=== PATIENT | male | born 1990 | race Two or more races ===

== ENCOUNTER → 2024-05-11 | Outpatient (CLI) | payer BC, SELFPAY ==
[2024-05-11 16:39] LABS: Basophils % (Auto) 1 % (0-2.5); Eosinophils # (Auto) 0.3 Thou/mm3 (0.0-0.5); Eosinophils % (Auto) 4 % (0-10); Hematocrit 44.1 % (41.0-53.0); Immature Granulocytes % (Auto) 0 % (0-0); Immature Granulocytes Auto 0.03 Thou/mm3 (0.00-0.00); Lymphocytes % (Auto) 24 % (10-50); Mean Corpuscular HGB Conc 31.7 g/dl (31.0-37.0); Mean Corpuscular Hemoglobin 25.9 pg (25.0-35.0); Mean Corpuscular Volume 82 fL (80-100); Monocytes # (Auto) 1.1 Thou/mm3 (0.0-0.8); Monocytes % (Auto) 13 % (0-12); Neutrophils # (Auto) 4.8 Thou/mm3 (1.8-7.7); Neutrophils % (Auto) 58 % (37-80); Nucleated Red Blood Cell % 0 /100 WBC (0); Platelet Count 305 Thou/mm3 (140-440); RDW Standard Deviation 42.6 fL (35.1-43.9); White Blood Count 8.2 Thou/mm3 (3.8-10.6)
[2024-05-11 17:10] LABS: Alanine Aminotransferase 37 U/L (10-49); Albumin, Serum 4.9 gm/dL (3.5-5.0); Albumin/Globulin Ratio 2.1 (1.2-2.2); Alkaline Phosphatase 60 U/L (46-116); Anion Gap 6 (7-16); Aspartate Amino Transferase 30 U/L (0-34); BUN/Creatinine Ratio 17 Ratio (12-20); Bilirubin,Total 0.4 mg/dL (0.3-1.2); Blood Urea Nitrogen 15 mg/dL (9-23); Calcium 9.9 mg/dL (8.3-10.6); Calcium (Corrected) 9.9 mg/dL (8.5-10.1); Carbon Dioxide 30.2 mMol/L (20.0-31.0); Chloride 102 mMol/L (98-107); Creatinine (Component) 0.9 mg/dL (0.6-1.3); Globulin 2.3 gm/dL (2.3-3.5); Glucose 83 mg/dL (74-106); Osmolality,Calculated 275 (275-295); Sodium 138 mMol/L (136-145); Total Protein 7.2 gm/dL (5.7-8.2); eGFR > 60 See Note
== END | disposition home or self-care (01) ==
PROVIDERS: PCP Family Medicine; Referring Provider Specialist; Visit Provider Specialist
DX: K51.911 Ulcerative colitis, unspecified with rectal bleeding (principal); R10.10 Upper abdominal pain, unspecified
CPT/HCPCS: 36415; 80053; 85025

== ENCOUNTER → 2024-08-08 | Outpatient (CLI) | payer BC, SELFPAY ==
[2024-08-08 11:20] LABS: Quantiferon-TB* See Sep Rpt
== END | disposition home or self-care (01) ==
LOC: COPL 11:05
PROVIDERS: PCP Family Medicine; Referring Provider Specialist; Visit Provider Specialist
DX: Z01.818 Encounter for other preprocedural examination (principal)
CPT/HCPCS: 86480

== ENCOUNTER 2024-08-25 14:25 | Inpatient (IN) | payer BC, SELFPAY ==
[2024-08-25 14:27] VITALS: BMI 30.5
[2024-08-25 14:48] VITALS: BP 153/92; PULSE 83; RESP 18; TEMP 37.1; O2SAT 97
--- NOTE | 2024-08-25 14:59 | XR_ITS ---
Examination: CT abdomen with intravenous contrast CT pelvis with intravenous contrast 2-D coronal reconstructions 2-D sagittal reconstructions Date and time of exam:August 25, 2024 1645 hrs. Indications: Rectal bleeding beginning 3 months ago. CTDI: vol (mGy) 9.15 DLP: (mGycm) 568 Technique: Multiple axial sections of the abdomen and pelvis have been obtained. 64 slice high-resolution scanner used. 3 mm axial sections have been obtained, post intravenous injection 60 cc [id number] 2-D sagittal, coronal reconstructions obtained. Low dose protocols were performed. One or more of the following dose reduction techniques were used; automated exposure control, adjustment of the mA and/or KV according to patient size, use of iterative reconstruction technique. Findings: No focal liver or splenic lesion Contracted gallbladder No pancreatic or adrenal mass No renal or ureteral calculi, no hydronephrosis Normal appendix The entire colon shows wall thickening and hyperemia Prominent rectal wall thickening No prostatomegaly Impression: Significant diffuse colitis pattern, differential would include ulcerative colitis, Crohn's disease Significant rectal wall thickening, proctitis included in the differential
--- NOTE | 2024-08-25 15:00 | EDRME_ITS ---
Rapid Medical Screening Exam [facility] Arrival date/time: 08/25/24 14:25 34-year-old male with a history of ulcerative colitis presents to the emergency room with a chief complaint of rectal bleeding. Patient states he was sent over by Dr. Monzon for a CT scan and lab work. I spoke to Dr. Monzon and place his orders. I have greeted and performed a focused initial assessment of this patient. A comprehensive ED assessment and evaluation of the patient, analysis of all test results, and completion of the medical decision making process will be conducted by additional ED providers. Chief Complaint: Abdominal Pain Vital signs: Vital Signs Temperature 98.8 F 08/25/24 14:48 Pulse Rate 83 08/25/24 14:48 Respiratory Rate 18 08/25/24 14:48 Blood Pressure 153/92 H 08/25/24 14:48 Pulse Oximetry (%) 97 08/25/24 14:48 Oxygen Delivery Method Room Air 08/25/24 14:48 Vital signs reviewed by provider: Yes
[2024-08-25 15:18] LABS: Basophils # (Auto) 0.1 Thou/mm3 (0.0-0.2); Basophils % (Auto) 0 % (0-2.5); Eosinophils % (Auto) 0 % (0-10); Hematocrit 44.8 % (41.0-53.0); Hemoglobin 14.6 g/dL (13.5-16.0); Immature Granulocytes % (Auto) 1 % (0-0); Lymphocytes # (Auto) 1.1 Thou/mm3 (1.0-4.8); Lymphocytes % (Auto) 8 % (10-50); Mean Corpuscular HGB Conc 32.6 g/dl (31.0-37.0); Mean Corpuscular Hemoglobin 26.6 pg (25.0-35.0); Mean Corpuscular Volume 82 fL (80-100); Monocytes # (Auto) 1.3 Thou/mm3 (0.0-0.8); Monocytes % (Auto) 10 % (0-12); Neutrophils # (Auto) 11.4 Thou/mm3 (1.8-7.7); Neutrophils % (Auto) 81 % (37-80); Nucleated Red Blood Cell % 0 /100 WBC (0); Platelet Count 312 Thou/mm3 (140-440); RDW Standard Deviation 43.3 fL (35.1-43.9); Red Blood Count 5.49 Miln/mm3 (4.50-5.90)
[2024-08-25 15:28] LABS: Sed Rate (ESR) 20 mm/hr (0-15)
[2024-08-25 15:56] LABS: Alanine Aminotransferase 18 U/L (10-49); Albumin, Serum 4.7 gm/dL (3.5-5.0); Albumin/Globulin Ratio 1.9 (1.2-2.2); Alkaline Phosphatase 64 U/L (46-116); Anion Gap 7 (7-16); Aspartate Amino Transferase < 8 U/L (0-34); BUN/Creatinine Ratio 18 Ratio (12-20); Bilirubin,Total 0.4 mg/dL (0.3-1.2); Blood Urea Nitrogen 16 mg/dL (9-23); C-Reactive Protein 0.7 mg/dL (0.0-0.9); Calcium 9.3 mg/dL (8.3-10.6); Calcium (Corrected) 9.3 mg/dL (8.5-10.1); Carbon Dioxide 31.6 mMol/L (20.0-31.0); Chloride 101 mMol/L (98-107); Creatinine (Component) 0.9 mg/dL (0.6-1.3); Estimated Creatinine Clearance 121.6 mL/min (>60); Globulin 2.5 gm/dL (2.3-3.5); Glucose 101 mg/dL (74-106); Osmolality,Calculated 280 (275-295); Potassium 3.8 mMol/L (3.4-5.1); Sodium 140 mMol/L (136-145); Total Protein 7.2 gm/dL (5.7-8.2); eGFR > 60 See Note
[2024-08-25 16:30] VITALS: BP 130/87; PULSE 77; RESP 18; TEMP 36.8; O2SAT 97
--- NOTE | 2024-08-25 18:22 | PRELIM_ITS ---
CT scan of the abdomen and pelvis with intravenous contrast (axial sections with sagittal and coronal reformats); dated August 25, 2024 at 1656 hours Clinical History: Rectal bleeding. Comparison: None. Findings: The lung bases are clear. The liver, gallbladder, pancreas, spleen, kidneys and adrenals are unremarkable. No evidence of bowel obstruction. The appendix is within normal limits (images 148-163). There is no mesenteric or retroperitoneal adenopathy. There is thickening of the wall of the rectum as well as anal canal is seen suggestive of inflammation due to proctitis. The urinary bladder is unremarkable. There is no free fluid or free air. The osseous structures are unremarkable. Impression: No evidence of acute intra-abdominal or pelvic pathology. Thickening of the wall of the rectum as well as anal canal, suggestive of inflammation due to proctitis. Report Electronically Signed By: Micky Ambrosio 08/25/2024 6:21:25 PM [EST]
[2024-08-25 18:56] VITALS: BP 143/84; PULSE 69; RESP 16; TEMP 36.6; O2SAT 97
--- NOTE | 2024-08-25 19:24 | PD.EDABDPN ---
ED Abdominal Pain RME/HPI General Chief Complaint: Abdominal Pain Stated complaint: BLOOD IN STOOLS Time seen by provider: 08/25/24 17:42 Arrival date/time: 08/25/24 14:25 This is a 34-year-old male significant past medical history of ulcerative colitis and hypertension presents to the emergency department with complaints of generalized abdominal pain, blood in stool not improvement over the last 1 week. 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 Denies any nausea or vomiting. This is associated with left lower quadrant pain. No fever, chills, or diarrhea. Source: patient RME / HPI RME / HPI narrative: 08/25/24 14:25 34-year-old male with a history of ulcerative colitis presents to the emergency room with a chief complaint of rectal bleeding. Patient states he was sent over by Dr. Monzon for a CT scan and lab work. I spoke to Dr. Monzon and place his orders. I have greeted and performed a focused initial assessment of this patient. A comprehensive ED assessment and evaluation of the patient, analysis of all test results, and completion of the medical decision making process will be conducted by additional ED providers. Related Data Home Medications ?Medication ?Instructions ?Recorded ?Confirmed prednisone 5 mg tablet 10 mg PO BID 12/25/22 12/26/22 Previous Rx's ?Medication ?Instructions ?Recorded azathioprine 50 mg tablet 50 mg PO BID 30 days #60 tabs 12/28/20 sulfasalazine 500 mg tablet 1,000 mg (2 x 500 mg) PO BID 30 12/28/20 days #120 tabs Allergies Allergy/AdvReac Type Severity Reaction Status Date / Time No Known Allergies Allergy Verified 08/25/24 14:29 Review of Systems Review of Systems Systems Reviewed: All systems reviewed, normal except as documented Narrative Review of Systems: Gen: No fever, no chills, no weight loss EYES: No discharge, no visual changes, no pain HEENT: No ear pain, no congestion, no sore throat PULM: No shortness of breath, no cough, no congestion CV: No chest pain, no dyspnea on exertion, no palpitations GI: No nausea, no vomiting, no diarrhea, + pain, blood in stool + : No frequency, no urgency, no dysuria Musc/skel: No joint pain, no back pain Skin: No rash Psyc: No hallucinations, no depression Heme/Lymph: No easy bleeding or bruising tendencies Neuro: No weakness, no headache Course Quality Measures none Orders Category Date Time Status CT Screening NOW Care 08/25/24 14:59 Active Insert IV NOW Care 08/25/24 17:43 Active Consult to Gastroenterology Stat Cons 08/25/24 19:[address] abdomen pelvis w con Stat Exams 08/25/24 14:59 Completed CBC Stat Lab 08/25/24 15:08 Completed CMP [Comprehensive Metabolic Panel] Stat Lab 08/25/24 15:08 Completed CRP [C-Reactive Protein] Stat Lab 08/25/24 15:08 Completed ESR [Sed Rate (ESR)] Stat Lab 08/25/24 15:08 Completed Type and Screen Stat Lab 08/25/24 15:08 Completed MethylPREDNISolone. [SoluMEDROL Inj] Med 08/25/24 19:24 Discontinued 40 mg IVP X1 ONE Morphine Inj Med 08/25/24 17:43 Discontinued 4 mg IVP X1 ONE Ondansetron Inj [Zofran Inj] Med 08/25/24 17:43 Discontinued 4 mg IV X1 ONE Vital Signs Vital signs: Vital Signs Temperature 98.8 F 08/25/24 14:48 Pulse Rate 83 08/25/24 14:48 Respiratory Rate 18 08/25/24 14:48 Blood Pressure 153/92 H 08/25/24 14:48 Pulse Oximetry (%) 97 08/25/24 14:48 Oxygen Delivery Method Room Air 08/25/24 14:48 Abdominal Pain MDM MDM Narrative MDM Narrative:: 34-year-old gentleman here for evaluation of generalized abdominal pain and blood in stool. History of colitis. Reported worsening blood in stool and abdominal pain. Patient's labs reviewed mild leukocytosis with bandemia. ESR 20. No severe electrolyte imbalance. CT of abdomen did demonstrate colitis and possible proctitis. Patient received IV fluids, and pain medication.. I did place a call out to Dr. Monzon who sent the patient here for evaluation 1933discussed case with Dr. Monzon patient's supervisor pile driving who would like patient to be admitted for IV steroids, n.p.o. IV fluids. Case discussed with on-call resident Maria Luisa for possible admission. DISPOSITION: Emergency Department nursing documentation was reviewed including triage complaint, associated symptoms, administration of medications, response to therapy and vital signs. Given the history, physical exam, and review of laboratory and imaging studies the patient is determined to be unsafe for discharge and is being moved into the hospital for further diagnostic tests, treatments, stabilization, and monitored response to therapy. I communicated the history, physical exam, pertinent laboratory and imaging studies to the inpatient physician. The inpatient physician has access to electronic copies of all emergency department laboratory testing and imaging studies as well as medications ordered and administered Patient data External records reviewed:: [facility] previous records Clinical information provided by:: patient Social determinants that could affect healthcare access:: none Patient has the following chronic illnesses:: Pretension and ulcerative colitis How is presenting disease/condition affected by chronic disease/condition?: exacerbated by Evaluation data The following diagnostics were reviewed and interpreted by me:: lab results and radiology exam(s) Lab and/or radiology exams considered but not ordered:: no Interpretation Summary: Examination: CT abdomen with intravenous contrast CT pelvis with intravenous contrast 2-D coronal reconstructions 2-D sagittal reconstructions Date and time of exam:August 25, 2024 1645 hrs. Indications: Rectal bleeding beginning 3 months ago. CTDI: vol (mGy) 9.15 DLP: (mGycm) 568 Technique: Multiple axial sections of the abdomen and pelvis have been obtained. 64 slice high-resolution scanner used. 3 mm axial sections have been obtained, post intravenous injection 60 cc [id number] 2-D sagittal, coronal reconstructions obtained. Low dose protocols were performed. One or more of the following dose reduction techniques were used; automated exposure control, adjustment of the mA and/or KV according to patient size, use of iterative reconstruction technique. Findings: No focal liver or splenic lesion Contracted gallbladder No pancreatic or adrenal mass No renal or ureteral calculi, no hydronephrosis Normal appendix The entire colon shows wall thickening and hyperemia Prominent rectal wall thickening No prostatomegaly Impression: Significant diffuse colitis pattern, differential would include ulcerative colitis, Crohn's disease Significant rectal wall thickening, proctitis included in the differential Medications / Prescriptions Medications or Prescriptions considered but not ordered:: no Medication administrations:: Medication Administration History Discontinued Medications Methylprednisolone Sodium Succinate (Methylprednisolone Sod Succ 40 Mg Vial) 40 mg IVP X1 ONE Stop: 08/25/24 19:25 Morphine Sulfate (Morphine Sulf Inj 10 Mg/Ml Vial) 4 mg IVP X1 ONE Stop: 08/25/24 17:44 Last Admin: 08/25/24 18:04 Dose: Not Given Documented By: RD Non-Admin Reason: Patient Refused Ondansetron HCl (Ondansetron Inj 2 Mg/Ml Inj 2 Ml) 4 mg IV X1 ONE; Protocol Stop: 08/25/24 17:44 Last Admin: 08/25/24 18:05 Dose: Not Given Documented By: RIKKI Non-Admin Reason: Patient Refused All medications administered and effective Consultations Consultation(s) initiated? (list below): Yes Consultation #1 (Physician, Specialty, Details): Dr. Monzon Diagnosis Differential diagnosis abdominal pain: abdominal pain, acute appendicitis, constipation, diverticulitis, pancreatitis and other (Her colitis, proctitis,) Most likely diagnosis given after review of the tests above:: Ulcerative colitis Admission Indicated Admission indicated?: indicated Admission Request Was there a request for admission?: Yes Disposition Plan Disposition Plan: Admit Discharge Plan Plan Patient Disposition: Admit Acute Care w/in Hospital Patient condition on transfer: Stable Prescriptions/Referrals Prescriptions/Med Rec: No Action azathioprine 50 mg Tablet 50 mg PO BID 30 Days Qty: 60 1RF sulfasalazine 500 mg Tablet 1,000 mg PO BID 30 Days Qty: 120 1RF prednisone 5 mg tablet 10 mg PO BID Taper: Prednisone Taper 20 mg DAILY for 2 Days and 0 Hour 10 mg DAILY for 2 Days and 0 Hour 5 mg DAILY for 7 Days and 0 Hour Referrals: No Primary/Family,Physician [Primary Care Provider] - In 1 week Problem List Clinical Impression: Colitis, Blood in stool Patient/Caregiver Discharge Instructions Discharge Activity: back to school once clear Print Language: Bahraini Stand Alone Forms: [employer] Award Info., Patient Portal Info Letter PA/JESUS Supervising Physician PA/JESUS Supervising Physician: Dr. Godoy
--- NOTE | 2024-08-25 20:00 | ESHP_ITS ---
Documentation for date of: 08/25/24 [facility] History of Present Illness History of present illness: This is a 34-year-old male with PMHx of ulcerative colitis, currently seeing Dr. Monzon for management, presenting with acute GI bleed and abdominal cramps. He was diagnosed greater than 2 years ago. Follows up regular with Dr. Monzon, currently on AZATHIOPRINE, PREDNISONE and SULFASALAZINE but reports poor response to treatment with recurrent abdominal cramp, GI upset, dark stool, and frequent bowel irregularity including diarrhea/constipation. His symptoms appear to have worsened over the last few days. Reported generalized fatigue, worsening 8 out of 10 abdominal pain, approximately 1 week of dark stool with occasional streaks of blood. He is unable to tolerate oral intake secondary to bloating, pain and nausea. Reports adhesions to his medications, with frequent UC flareups. Denies ASPIRIN or IBUPROFEN use. Denies fall or trauma, fever, chills, abnormal weight changes, chest pain, cough, shortness of breath, palpitations, hematemesis or hemoptysis or hematuria, urinary frequency or urgency, or fecal incontinence. ED COURSE: Afebrile, BP 153/92, HR 83, RR 18, satting 97% on room air. WBC 14 with left shift, remainder CBC WNL. Chemistry panel WNL including CRP and liver function. UA negative for UTI. CT abdomen/pelvis showed significantly diffuse colitis pattern and rectal wall thickening. He was admitted for ulcerative colitis exacerbation. PMHx: Ulcerative colitis PSHx: None. MEDS: AZATHIOPRINE 50 mg BID, PREDNISONE 10 mg BID, SULFASALAZINE 1 g BID, FOLIC ACID daily. ALLERGIES: NKA. FHx: No relevant history. SH: Denies current tobacco, alcohol, or drug use. Exam Vital Signs Temp Pulse Resp BP Pulse Ox O2 Del Method 97.8 F 69 16 143/84 H 97 Room Air 08/25/24 18:56 08/25/24 18:56 08/25/24 18:56 08/25/24 18:56 08/25/24 18:56 08/25/24 18:56 Narrative Exam GENERAL * Ill-appearing adult male, in mild distress secondary to abdominal discomfort. HEENT * NCAT.?KIRA. Oral mucosa is moist. Patent Nares NECK * Supple, nontender, no thyromegaly, no meningismus, no JVD, no step offs CHEST * RRR, no m/g/r * CTAB, no w/r/r. Symmetrical chest rise. No intercostal subcostal retraction * Atraumatic, nontender, no crepitus, symmetrical expansion. ABDOMEN * Soft, distended, diffusely tender. * No guarding/rebound tenderness/masses. * Bowel sounds presents in hyperactive EXTREMITIES * No edema/cyanosis.? SKIN * Warm and dry, no jaundice/rashes. NEUROMUSCULAR * No lumbar or midline, no CVA, no paraspinal muscle spasm or tenderness. * Moves all 4 extremities well, with full ROM and good CSM. * FONSECA x4, CN II-XII grossly intact. * No focal neurologic deficits. PSYCHIATRY * Normal mood and affect, cooperative, no SI or HI or hallucinations. Results: Labs 08/25/24 15:08 08/25/24 15:08 Labs: Short CBC 08/25/24 Range/Units 15:08 WBC 14.0 H (3.8-10.6) Thou/mm3 Hgb 14.6 (13.5-16.0) g/dL Hct 44.8 (41.0-53.0) % Plt Count 312 (140-440) Thou/mm3 BMP 08/25/24 15:08 Sodium 140 Potassium 3.8 Chloride 101 Carbon Dioxide 31.6 H BUN 16 Creatinine 0.9 Glucose 101 Calcium 9.3 Liver Function 08/25/24 Range/Units 15:08 Total Bilirubin 0.4 (0.3-1.2) mg/dL AST < 8 (0-34) U/L ALT 18 (10-49) U/L Alkaline Phosphatase 64 (46-116) U/L Albumin 4.7 (3.5-5.0) gm/dL Quality Measures Quality Measures none Medications Home Medications and Allergies Home Medications ?Medication ?Instructions ?Recorded ?Confirmed ?Type prednisone 5 mg tablet 10 mg PO BID 12/25/22 History folic acid 1 mg tablet 08/25/24 History Allergies Allergy/AdvReac Type Severity Reaction Status Date / Time No Known Allergies Allergy Verified 08/25/24 23:59 Visit Medications Discontinued Medications Methylprednisolone Sodium Succinate (Methylprednisolone Sod Succ 40 Mg Vial) 40 mg IVP X1 ONE Stop: 08/25/24 19:25 Morphine Sulfate (Morphine Sulf Inj 10 Mg/Ml Vial) 4 mg IVP X1 ONE Stop: 08/25/24 17:44 Last Admin: 08/25/24 18:04 Dose: Not Given Ondansetron HCl (Ondansetron Inj 2 Mg/Ml Inj 2 Ml) 4 mg IV X1 ONE; Protocol Stop: 08/25/24 17:44 Last Admin: 08/25/24 18:05 Dose: Not Given Assessment & Plan Plan In summary: 34-year-old male with PMHx of ulcerative colitis with recurrent exacerbation, admitted for acute ulcerative colitis flareup. Appreciate recommendations from GI team. Ulcerative colitis flareup Acute proctitis Leukocytosis Has history of ulcerative colitis, managed by Dr. Monzon. Currently on AZATHIOPRINE/PREDNISONE/SULFASALAZINE which he takes regularly as prescribed, has recurrent exacerbation. Senting with S/S of UC flareups including abdominal pain, nausea, bloody stool, fatigue, and food intolerance. Has diffuse distention, abdominal tenderness and hyperactive bowel sounds on exam. CRP WNL, Hgb 14.6. WBC 14 likely reactive, he is afebrile, low suspicion for active infection. CT abdomen/pelvis showed significant diffuse colitis pattern (UC versus Crohn's), in addition to rectal wall thickening just above proctitis. ? Continue n.p.o. ? Considered ESR and calprotectin but will wait for GI recommendations ? Continue TYLENOL for pain. ? Continue ONDANSETRON for nausea ? Continue AZATHIOPRINE 50 mg BID ? Continue METHYLPREDNISOLONE 40 mg IV QID ? Continue SULFASALAZINE 1 g BID ? Continue PROTONIX 40 mg q. day ? Continue FOLIC ACID 1 mg daily ? Pending FOBT ? Pending GI recommendations *GI, Dr. Monzon, Recommended REMICADE (nonformulary) which requires authorization. Nonformulary order has been placed. Dosing to be determined by GI, but will start with 5 mg/kg for initial dose. I have placed a referral to social media director for REMICADE preauthorization. ? Follow-up with nephrology social worker Elevated blood pressure (resolved) Admission BP 153/92, likely reactive. Currently normotensive. Continue monitoring Health maintenance Diet: Low fiber GI prophylaxis: PROTONIX DVT prophylaxis: SCD Antibiotics: Not indicated CODE STATUS: Full code Disposition: Pending GI recommendations. Patient case was discussed with attending, Maria Guadalupe Aguila MD. Rosette Jeffrey DO PGYI Attending Provider Attestation/Addendum I attest that I was physically present for the evaluation, physical examination, lab and imaging review of the patient with the residents. I discussed the case with the residents and agree with the findings and plans of care as documented above. Patient is a 34 years old male with past medical history of ulcerative colitis who presented to the ED with complaint of ongoing abdominal cramps, loose stool and blood in the stool. Patient was diagnosed with ulcerative colitis 2 years back, has been following GI. Patient has been taking azathioprine, prednisone and sulfasalazine but has not received good response. He denies any nausea or vomiting, denies abdominal pain currently. In the ED, his blood pressure is 153/92, rest of the vitals are within normal limits. WBC is 14, rest of the labs are nonconcerning. CT abdomen/pelvis was done which shows significant diffuse colitis pattern and rectal wall thickening. Dr. Monzon was consulted by ED, recommended admission for ulcerative colitis flare. We will admit the patient, start him on azathioprine, methylprednisolone, sulfasalazine, Protonix and Remicade as recommended by GI. As per Dr. Monzon, Remicade requires authorization, we will obtain case management referral for authorization. Malu Aguila MD
[2024-08-25] MEDS: FOLIC ACID 1 MG TABLET PO (20:35)
[2024-08-25] MEDS: azaTHIOprine 50 MG TABLET PO (22:06)
[2024-08-25] MEDS: sulfaSALAzine 500 MG TABLET 1000 MG PO (22:06)
--- NOTE | 2024-08-25 22:11 | PC.NURSE ---
Telephoned pharmacy earlier at 2020 regarding the medications not [facility]; awaiting medication for the final medication remicade; medication is not stocked in the ED.
[2024-08-25 22:14] VITALS: BP 137/82; PULSE 73; RESP 16; O2SAT 95; BMI 30.5
--- NOTE | 2024-08-25 23:05 | PD.IMCONS ---
HPI Data of Consult Requesting Physician: Malu Aguila MD Primary Care Provider: Physician No Primary/Family Consult Narrative Reason for consult: Diarrhea pain abdomen abnormal CTAP History of present illness: 34 years of male sent to the emergency room because of the worsening symptoms of severe abdominal pain diarrhea with bleeding Patient has a known history of inflammatory bowel disease has been on prednisone azathioprine sulfasalazine and folic acid no response As an outpatient I was thinking of starting the patient on anti-TNF's His cocci serologies are negative and his QST is also negative Because of the worsening symptom patient was directed to the emergency room where CT scan of the abdomen pelvis showed diffuse colitis and subsequently got admitted cc:: cc: Malu Aguila MD Review of Systems Review of Systems Systems Reviewed: All systems reviewed, normal except as documented Meds Home Medications and Allergies Home Medications ?Medication ?Instructions ?Recorded ?Confirmed ?Type prednisone 5 mg tablet 10 mg PO BID 12/25/22 12/26/22 History Allergies Allergy/AdvReac Type Severity Reaction Status Date / Time No Known Allergies Allergy Verified 08/25/24 14:29 Exam Vital Signs Temp Pulse Resp BP Pulse Ox O2 Del Method 97.8 F 73 16 137/82 H 95 Room Air 08/25/24 18:56 08/25/24 22:14 08/25/24 22:14 08/25/24 22:14 08/25/24 22:14 08/25/24 22:14 Constitutional Comments: Chronically ill-appearing Routine Respiratory Exam Comments: Normal to auscultation Routine Abdominal Exam Comments: Generalized tenderness positive bowel sounds Results Labs 08/25/24 15:08 08/25/24 15:08 Labs: Short CBC 08/25/24 Range/Units 15:08 WBC 14.0 H (3.8-10.6) Thou/mm3 Hgb 14.6 (13.5-16.0) g/dL Hct 44.8 (41.0-53.0) % Plt Count 312 (140-440) Thou/mm3 BMP 08/25/24 15:08 Sodium 140 Potassium 3.8 Chloride 101 Carbon Dioxide 31.6 H BUN 16 Creatinine 0.9 Glucose 101 Calcium 9.3 Liver Function 08/25/24 Range/Units 15:08 Total Bilirubin 0.4 (0.3-1.2) mg/dL AST < 8 (0-34) U/L ALT 18 (10-49) U/L Alkaline Phosphatase 64 (46-116) U/L Albumin 4.7 (3.5-5.0) gm/dL Assessment and Plan Additional Assessment & Plan Additional Plan: Acute exacerbation of the underlying inflammatory bowel disease not responsive to aggressive outpatient conservative management with abnormal CT scan of the abdomen pelvis Plan Stool for culture and sensitivity C. difficile Gram stain and occult blood Generic Remicade available in the hospital at 5 mg/kg body weight loading dose to be given tomorrow Will follow the patient May need upper endoscopy and lower endoscopy prior to discharge for better assessment of his underlying severity of the disease Thank you very much for the opportunity to participate in care of this patient
[2024-08-25 23:57] VITALS: BMI 31.0
[2024-08-26] VITALS: BP 140/88; PULSE 72; RESP 16; TEMP 36.2; O2SAT 95
[2024-08-26 04:00] VITALS: BP 136/82; PULSE 91; RESP 16; TEMP 36.4; O2SAT 95
[2024-08-26 06:59] LABS: Basophils % (Auto) 0 % (0-2.5); Eosinophils % (Auto) 0 % (0-10); Hematocrit 45.7 % (41.0-53.0); Hemoglobin 14.5 g/dL (13.5-16.0); Immature Granulocytes % (Auto) 1 % (0-0); Immature Granulocytes Auto 0.05 Thou/mm3 (0.00-0.00); Lymphocytes # (Auto) 0.9 Thou/mm3 (1.0-4.8); Lymphocytes % (Auto) 9 % (10-50); Mean Corpuscular HGB Conc 31.7 g/dl (31.0-37.0); Mean Corpuscular Hemoglobin 26.4 pg (25.0-35.0); Mean Corpuscular Volume 83 fL (80-100); Monocytes # (Auto) 0.8 Thou/mm3 (0.0-0.8); Monocytes % (Auto) 8 % (0-12); Neutrophils # (Auto) 8.2 Thou/mm3 (1.8-7.7); Neutrophils % (Auto) 82 % (37-80); Nucleated Red Blood Cell % 0 /100 WBC (0); Platelet Count 316 Thou/mm3 (140-440); RDW Standard Deviation 44.5 fL (35.1-43.9)
[2024-08-26 07:18] LABS: Alanine Aminotransferase 16 U/L (10-49); Albumin, Serum 4.4 gm/dL (3.5-5.0); Albumin/Globulin Ratio 1.8 (1.2-2.2); Alkaline Phosphatase 64 U/L (46-116); Anion Gap 8 (7-16); Aspartate Amino Transferase 12 U/L (0-34); BUN/Creatinine Ratio 17 Ratio (12-20); Bilirubin,Total 0.5 mg/dL (0.3-1.2); Blood Urea Nitrogen 12 mg/dL (9-23); C-Reactive Protein 0.9 mg/dL (0.0-0.9); Calcium 9.2 mg/dL (8.3-10.6); Calcium (Corrected) 9.2 mg/dL (8.5-10.1); Carbon Dioxide 26.9 mMol/L (20.0-31.0); Chloride 104 mMol/L (98-107); Creatinine (Component) 0.7 mg/dL (0.6-1.3); Estimated Creatinine Clearance 157.6 mL/min (>60); Globulin 2.5 gm/dL (2.3-3.5); Glucose 109 mg/dL (74-106); Magnesium 2.2 mg/dL (1.6-2.6); Osmolality,Calculated 278 (275-295); Phosphorous 4.5 mg/dL (2.4-5.1); Potassium 4.2 mMol/L (3.4-5.1); Sodium 139 mMol/L (136-145); Total Protein 6.9 gm/dL (5.7-8.2); eGFR > 60 See Note
[2024-08-26 07:46] VITALS: BP 144/89; PULSE 63; RESP 18; TEMP 35.9; O2SAT 96
--- NOTE | 2024-08-26 09:22 | PC.CC ---
Notified by Dr. Pugh patient planned to start infliximab infusion today for UC. Noted patient is under care of Dr. Monzon as outpatient. S/W Raina @ Dr. Monzon's office, she has already initiated orders for outpatient infusion at [facility], no auth required. Per [facility] handoff, she is awaiting appointment date from [facility]. Confirmed with inpatient pharmacy that formulary Inflectra is in stock. Notified [facility] of planned 0 week infusion inpatient today.
[2024-08-26] MEDS: FOLIC ACID 1 MG TABLET PO (09:46)
[2024-08-26] MEDS: sulfaSALAzine 500 MG TABLET 1000 MG PO ×2 (09:47→20:29)
[2024-08-26] MEDS: PANTOPRAZOLE INJ 40 MG VIAL IVP (09:54)
[2024-08-26] MEDS: azaTHIOprine 50 MG TABLET PO ×2 (10:20→20:28)
--- NOTE | 2024-08-26 10:35 | PD.RESPRO ---
Documentation for date of: 08/26/24 Subjective Subjective Interval history: Patient was seen and examined at bedside this AM. No acute exents overnight. Patient tolerating diet, adequate urine output and mentation is at baseline. Patient endorses improvement of diarrhea and abdominal pain. This morning he had a formed bowel movement with no blood or mucus seen in toilet. Stool does not fit criteria for C. difficile. Discontinued Discussed with pharmacy and GI, Dr. Monzon. Will give patient's loading dose of infliximab infusion today at 5 Mg per KG. Infliximab 450 Mg IV infusion ordered. Patient currently on methylprednisolone 40 Mg IV 4 times daily. Exam Vital Signs Temp Pulse Resp BP Pulse Ox O2 Del Method 96.6 F L 63 18 144/89 H 96 Room Air 08/26/24 07:46 08/26/24 07:46 08/26/24 07:46 08/26/24 07:46 08/26/24 07:46 08/26/24 07:46 Narrative Exam Constitutional Alert, oriented x 3 and comfortable. Young male HEENT Vision grossly intact. Patent nares. Trachea midline Respiratory Chest normal on inspection and clear auscultation bilaterally Cardiovascular S1 and S2 audible, RRR. No murmurs carotid bruit. No gross JVD. Abdominal Soft and non tender to palpation in all quadrants. BS + Genitourinary No bladder tenderness, no flank pain. Normal to palpation Musculoskeletal Extremities tone within normal limits. No LE edema. Neurological CN II - XII grossly intact. Extremity motor and sensation grossly intact. Skin Warm, dry and intact. No apparent lesions. Psychiatric Patient has good affect, is cooperative Objective Labs 08/26/24 05:07 08/26/24 05:07 Labs: Laboratory Results - last 24 hr 08/25/24 08/26/24 15:08 05:07 WBC 14.0 H 10.0 RBC 5.49 5.50 Hgb 14.6 14.5 Hct 44.8 45.7 MCV 82 83 MCH 26.6 26.4 MCHC 32.6 31.7 RDW Std Deviation 43.3 44.5 H Plt Count 312 316 Neut % (Auto) 81 H 82 H Lymph % (Auto) 8 L 9 L [place] % (Auto) 10 8 Eos % (Auto) 0 0 Baso % (Auto) 0 0 Neut # (Auto) 11.4 H 8.2 H Lymph # (Auto) 1.1 0.9 L [place] # (Auto) 1.3 H 0.8 Eos # (Auto) 0.0 0.0 Baso # (Auto) 0.1 0.0 Immature Gran # (Auto) 0.10 H 0.05 H Absolute Nucleated RBC 0.00 0.00 Immature Gran % 1 H 1 H Nucleated RBC % 0 0 ESR 20 H Sodium 140 139 Potassium 3.8 4.2 Chloride 101 104 Carbon Dioxide 31.6 H 26.9 Anion Gap 7 8 BUN 16 12 Creatinine 0.9 0.7 Estim Creat Clear Calc 121.6 157.6 eGFR > 60 > 60 BUN/Creatinine Ratio 18 17 Glucose 101 109 H Calculated Osmolality 280 278 Calcium 9.3 9.2 Corrected Calcium 9.3 9.2 Phosphorus 4.5 Magnesium 2.2 Total Bilirubin 0.4 0.5 AST < 8 12 ALT 18 16 Alkaline Phosphatase 64 64 C-Reactive Prot, Quant 0.7 0.9 Total Protein 7.2 6.9 Albumin 4.7 4.4 Globulin 2.5 2.5 Albumin/Globulin Ratio 1.9 1.8 Blood Type A Positive Antibody Screen NEGATIVE Blood Bank Wristband ID Yes Quality Measures Quality Measures none Assessment & Plan Assessment Current Active Medications: Generic Name Dose Route Start Last Admin Trade Name Freq PRN Reason Stop Dose Admin Acetaminophen 650 mg 08/25/24 20:11 Acetaminophen 325 Mg Tablet PO 09/24/24 20:10 Q6H PRN PAIN SCALE 1-3 (mild Acetaminophen 650 mg 08/25/24 20:11 Acetaminophen 325 Mg Tablet PO 09/24/24 20:10 Q6H PRN Fever >100.4 Azathioprine 50 mg 08/25/24 21:00 08/25/24 22:06 Azathioprine 50 Mg Tablet PO 09/24/24 20:59 50 mg BID JOSE ALFREDO Administration Folic Acid 1 mg 08/25/24 20:30 08/26/24 09:46 Folic Acid 1 Mg Tablet PO 09/24/24 20:29 1 mg QDAY JOSE ALFREDO Administration Methylprednisolone Sodium Succinate 40 mg 08/25/24 21:00 08/26/24 06:35 Methylprednisolone Sod Succ 40 Mg Vial IVP 09/01/24 20:59 40 mg QID JOSE ALFREDO Administration Ondansetron HCl 4 mg 08/25/24 20:11 Ondansetron Inj 2 Mg/Ml Inj 2 Ml IV 09/24/24 20:10 Q6H PRN NAUSEA OR VOMITING Protocol Pantoprazole Sodium 40 mg 08/26/24 09:00 08/26/24 09:54 Pantoprazole Inj 40 Mg Vial IVP 09/25/24 08:59 40 mg QDAY JOSE ALFREDO Administration Sulfasalazine 1,000 mg 08/25/24 21:00 08/26/24 09:47 Sulfasalazine 500 Mg Tablet PO 09/24/24 20:59 1,000 mg BID JOSE ALFREDO Administration Plan 34-year-old male with PMHx of ulcerative colitis with recurrent exacerbation, admitted for acute ulcerative colitis flare. Ulcerative colitis flare Acute proctitis Leukocytosis - improving Has history of ulcerative colitis, managed by Dr. Monzon. Currently on home medication AZATHIOPRINE/PREDNISONE/SULFASALAZINE which he takes regularly as prescribed, has recurrent exacerbation. Senting with S/S of UC flareups including abdominal pain, nausea, bloody stool, fatigue, and food intolerance. Has diffuse distention, abdominal tenderness and hyperactive bowel sounds on exam. CRP WNL, Hgb 14.6. WBC 14 likely reactive, he is afebrile, low suspicion for active infection. CT abdomen/pelvis showed significant diffuse colitis pattern (UC versus Crohn's), in addition to rectal wall thickening just above proctitis. Patient endorses improvement of diarrhea and abdominal pain. This morning he had a formed bowel movement with no blood or mucus seen in toilet. Stool does not fit criteria for C. difficile. Discontinued Discussed with pharmacy and GI, Dr. Monzon. Will give patient's loading dose of infliximab infusion today at 5 Mg per KG. Infliximab 450 Mg IV infusion ordered. Plan: - Pending stool studies including culture and sensitivity. ? Continue methylprednisolone 40 Mg IV 4 times daily ? Continue home medication azathioprine 50 Mg p.o. twice daily ? Continue home medication folic acid 1 Mg p.o. daily ? Continue home medication sulfasalazine 1000 Mg p.o. twice daily ? Continue ondansetron 4 Mg IV every 6 hourly as needed for nausea/vomiting ? Started on infliximab infusion at 5 Mg per KG. Infliximab 450 Mg in normal saline 250 mL infusion IV x 1 ? Patient will need repeat dose of infliximab in [address] Monzon's office after discharge. ? GI, Dr. Monzon consulted and closely following the case. Appreciate recommendations Health maintenance: Disposition: Infliximab infusion Diet: Low residue Lines: pIVs GI Prophylaxis: Pantoprazole Thrombo Prophylaxis: None Code status: FULL CODE Plan of care discussed with Attending Dr. Alvarez and PGY2 Dr. Koko Pugh MD PGY 1 Attending Provider Attestation/Addendum I reviewed labs, imaging, EKG, home medications and prior available records. Face to face evaluation was performed by me. I have personally examined the patient and discussed assessment and plan with the IM team. I reviewed the resident note and agree with the plan with exceptions as below. Ulcerative colitis flare Bloody diarrhea Leukocytosis Continue azathioprine, IV methylprednisolone, and sulfasalazine Discussed with GI and pharmacy: Started infliximab. Will continue that medication upon discharge Trend WBC: Downtrending Follow-up C. difficile Possible discharge tomorrow if his symptoms continue to improve and if GI is okay
[2024-08-26 11:30] VITALS: BP 137/84; PULSE 72; RESP 18; TEMP 35.9; O2SAT 96
[2024-08-26 12:08] LABS: Sed Rate (ESR) 21 mm/hr (0-15)
--- NOTE | 2024-08-26 12:27 | PC.SS ---
SS met with patient regarding his d/c plan.? Pt is alert/oriented.? Pt was admitted for Ulcerative Colitis Flare UP.? Pt confirmed demographic and contact information is correct on facesheet.? Pt resides with and kids.? Pt ambulates independently without assistance or DME.? Pt is ok with all ADLs.? 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 Patient?s pharmacy of choice is [facility] [address].? Pt named his Melinda Erazo medical decision maker if he is unable.? Patient?s choice is to return home upon d/c.? Pt states he is not diabetic and is not on dialysis.? Pt states he followed up with PCP about 2-3 years ago. D/C plan:? Return home Next of Kin:? Melinda Erazo, , phone# [phone] PCP:? Dr. Allie Whipple Address:? Correct on facesheet
[2024-08-26] MEDS: [UNRECOGNIZED DRUG - OTHER] IV (12:33)
[2024-08-26] MEDS: STERILE WATER IV (12:33)
[2024-08-26] MEDS: FILTER MICRON CONICAL IV (12:33)
[2024-08-26] MEDS: INFLIXIMAB IV (12:33)
[2024-08-26 15:36] VITALS: BP 132/76; PULSE 80; RESP 18; TEMP 36.3; O2SAT 96
[2024-08-26 16:02] LABS: Stool for WBCs 1+ (Negative)
[2024-08-26 20:00] VITALS: BP 135/90; PULSE 94; RESP 18; TEMP 36.6; O2SAT 95
--- NOTE | 2024-08-26 22:43 | ESPR_ITS ---
Documentation for date of: 08/26/24 Subjective Subjective Interval history: Patient received a dose of Inflectra 4 and 50 mg IV piggyback today Exam Vital Signs Temp Pulse Resp BP Pulse Ox O2 Del Method 97.8 F 94 18 135/90 H 95 Room Air 08/26/24 20:00 08/26/24 20:00 08/26/24 20:00 08/26/24 20:00 08/26/24 20:00 08/26/24 20:00 Objective Labs 08/26/24 05:07 08/26/24 05:07 Labs: Laboratory Results - last 24 hr 08/25/24 08/26/24 09:50 05:07 WBC 10.0 RBC 5.50 Hgb 14.5 Hct 45.7 MCV 83 MCH 26.4 MCHC 31.7 RDW Std Deviation 44.5 H Plt Count 316 Neut % (Auto) 82 H Lymph % (Auto) 9 L [place] % (Auto) 8 Eos % (Auto) 0 Baso % (Auto) 0 Neut # (Auto) 8.2 H Lymph # (Auto) 0.9 L [place] # (Auto) 0.8 Eos # (Auto) 0.0 Baso # (Auto) 0.0 Immature Gran # (Auto) 0.05 H Absolute Nucleated RBC 0.00 Immature Gran % 1 H Nucleated RBC % 0 ESR 21 H Sodium 139 Potassium 4.2 Chloride 104 Carbon Dioxide 26.9 Anion Gap 8 BUN 12 Creatinine 0.7 Estim Creat Clear Calc 157.6 eGFR > 60 BUN/Creatinine Ratio 17 Glucose 109 H Calculated Osmolality 278 Calcium 9.2 Corrected Calcium 9.2 Phosphorus 4.5 Magnesium 2.2 Total Bilirubin 0.5 AST 12 ALT 16 Alkaline Phosphatase 64 C-Reactive Prot, Quant 0.9 Total Protein 6.9 Albumin 4.4 Globulin 2.5 Albumin/Globulin Ratio 1.8 Stool for White Cells 1+ A Stl C. diff Tox B Gene Cancelled Impressions Impression: Acute exacerbation of the underlying inflammatory bowel disease Inflectra 450 mg today Then at 2 weeks Then at 4 weeks And then every 8 weeks Assessment & Plan A&P Narrative Acute exacerbation of the underlying inflammatory bowel disease not responsive to aggressive outpatient conservative management with abnormal CT scan of the abdomen pelvis Plan Stool for culture and sensitivity C. difficile Gram stain and occult blood Generic Remicade available in the hospital at 5 mg/kg body weight loading dose to be given tomorrow Will follow the patient May need upper endoscopy and lower endoscopy prior to discharge for better assessment of his underlying severity of the disease Thank you very much for the opportunity to participate in care of this patient Time Spent With Patient Time: Total time spent is greater than 50% in coordination of care (as documented) at patient's floor/unit and/or counseling patient:
[2024-08-27] VITALS: BP 141/84; PULSE 88; RESP 18; TEMP 36.4; O2SAT 96
[2024-08-27 04:00] VITALS: BP 124/79; PULSE 79; RESP 18; TEMP 36.4; O2SAT 95
[2024-08-27 05:21] LABS: Basophils % (Auto) 0 % (0-2.5); Eosinophils % (Auto) 0 % (0-10); Hemoglobin 14.4 g/dL (13.5-16.0); Immature Granulocytes % (Auto) 1 % (0-0); Immature Granulocytes Auto 0.13 Thou/mm3 (0.00-0.00); Lymphocytes % (Auto) 6 % (10-50); Mean Corpuscular Hemoglobin 26.2 pg (25.0-35.0); Mean Corpuscular Volume 82 fL (80-100); Monocytes # (Auto) 1.5 Thou/mm3 (0.0-0.8); Monocytes % (Auto) 9 % (0-12); Neutrophils # (Auto) 14.4 Thou/mm3 (1.8-7.7); Neutrophils % (Auto) 85 % (37-80); Nucleated Red Blood Cell % 0 /100 WBC (0); Platelet Count 308 Thou/mm3 (140-440); RDW Standard Deviation 43.5 fL (35.1-43.9); White Blood Count 17.1 Thou/mm3 (3.8-10.6)
[2024-08-27 05:49] LABS: Alanine Aminotransferase 14 U/L (10-49); Albumin, Serum 4.4 gm/dL (3.5-5.0); Albumin/Globulin Ratio 1.8 (1.2-2.2); Alkaline Phosphatase 69 U/L (46-116); Anion Gap 8 (7-16); Aspartate Amino Transferase 12 U/L (0-34); BUN/Creatinine Ratio 19 Ratio (12-20); Bilirubin,Total 0.3 mg/dL (0.3-1.2); Blood Urea Nitrogen 15 mg/dL (9-23); Calcium 9.5 mg/dL (8.3-10.6); Calcium (Corrected) 9.5 mg/dL (8.5-10.1); Carbon Dioxide 27.5 mMol/L (20.0-31.0); Chloride 104 mMol/L (98-107); Creatinine (Component) 0.8 mg/dL (0.6-1.3); Estimated Creatinine Clearance 137.9 mL/min (>60); Globulin 2.5 gm/dL (2.3-3.5); Glucose 134 mg/dL (74-106); Magnesium 2.2 mg/dL (1.6-2.6); Osmolality,Calculated 280 (275-295); Phosphorous 4.6 mg/dL (2.4-5.1); Potassium 4.8 mMol/L (3.4-5.1); Sodium 139 mMol/L (136-145); Total Protein 6.9 gm/dL (5.7-8.2); eGFR > 60 See Note
[2024-08-27 08:00] VITALS: BP 126/77; PULSE 54; RESP 16; TEMP 36.2; O2SAT 96
[2024-08-27] MEDS: PANTOPRAZOLE INJ 40 MG VIAL IVP (08:52)
[2024-08-27] MEDS: FOLIC ACID 1 MG TABLET PO (08:52)
[2024-08-27] MEDS: sulfaSALAzine 500 MG TABLET 1000 MG PO ×2 (08:52→20:07)
[2024-08-27] MEDS: azaTHIOprine 50 MG TABLET PO ×2 (08:53→20:07)
[2024-08-27 12:00] VITALS: BP 138/99; PULSE 67; RESP 16; TEMP 36.1; O2SAT 97
[2024-08-27 15:05] VITALS: BMI 31.1
--- NOTE | 2024-08-27 15:21 | ESPR_ITS ---
<Statement entered by Enma Figueredo MD - 08/28/24 03:35> Patient was seen and examined by me personally. I have directly supervised and reviewed the above documentation by the team resident and agree with its findings with any exceptions or additional findings as below. Plan of care was discussed with the attending, Dr. Lr. Patient is a 34-year-old male with past medical history of ulcerative colitis with recurrent exacerbation who was admitted for acute ulcerative colitis flare up. Patient today reports feeling very well, and was able to have normal bowel movements without any abdominal pain. He feels ready to go home, however after discussion with Dr. Monzon the patient will have to stay until Thursday for another infliximab infusion in order to qualify with his insurance for further treatments. Follow up with protective services social worker to ensure patient can have future infusions set up prior to discharge. Enma Figueredo, PGY-2 Documentation for date of: 08/27/24 Subjective Subjective Interval history: Patient was seen and examined by the bedside. No acute overnight events. Patient is feeling well. Patient had an infliximab infusion yesterday, denies fever, chills, no redness at the site of infusion. Patient reports having a bowel movement today, brown in color. Continues to receive azathioprine, prednisone and sulfasalazine. Dr. Monzon's closely following the patient. Exam Vital Signs Temp Pulse Resp BP Pulse Ox O2 Del Method 97.0 F 67 16 138/99 H 97 Room Air 08/27/24 12:00 08/27/24 12:00 08/27/24 12:00 08/27/24 12:00 08/27/24 12:08/27/24 12:00 Narrative Exam Physical Exam General: Awake and in no acute distress. Conversational and non-toxic appearing young male. HEENT: Normocephalic, atraumatic, mucous membranes moist. Heart: Regular rate and rhythm, no murmurs. Lungs: Clear to auscultation with no wheezing or crackles. Abdomen: Soft, nondistended, nontender, positive bowel sounds. ?No guarding or rebound tenderness. Neurologic: Alert and oriented x3, no gross neurological deficit, and patient able to move all 4 extremities. Extremities: No edema. Skin: No rash or ecchymoses. Objective Labs 08/29/24 04:32 08/29/24 04:32 Labs: Laboratory Results - last 24 hr 08/25/24 08/27/24 09:50 04:48 WBC 17.1 H D RBC 5.50 Hgb 14.4 Hct 45.0 MCV 82 MCH 26.2 MCHC 32.0 RDW Std Deviation 43.5 Plt Count 308 Neut % (Auto) 85 H Lymph % (Auto) 6 L [place] % (Auto) 9 Eos % (Auto) 0 Baso % (Auto) 0 Neut # (Auto) 14.4 H Lymph # (Auto) 1.0 [place] # (Auto) 1.5 H Eos # (Auto) 0.0 Baso # (Auto) 0.0 Immature Gran # (Auto) 0.13 H Absolute Nucleated RBC 0.00 Immature Gran % 1 H Nucleated RBC % 0 Sodium 139 Potassium 4.8 D Chloride 104 Carbon Dioxide 27.5 Anion Gap 8 BUN 15 Creatinine 0.8 Estim Creat Clear Calc 137.9 eGFR > 60 BUN/Creatinine Ratio 19 Glucose 134 H Calculated Osmolality 280 Calcium 9.5 Corrected Calcium 9.5 Phosphorus 4.6 Magnesium 2.2 Total Bilirubin 0.3 AST 12 ALT 14 Alkaline Phosphatase 69 Total Protein 6.9 Albumin 4.4 Globulin 2.5 Albumin/Globulin Ratio 1.8 Stool for White Cells 1+ A Stl C. diff Tox B Gene Cancelled Quality Measures Quality Measures none Assessment & Plan Assessment Current Active Medications: Generic Name Dose Route Start Last Admin Trade Name Freq PRN Reason Stop Dose Admin Acetaminophen 650 mg 08/25/24 20:11 Acetaminophen 325 Mg Tablet PO 09/24/24 20:10 Q6H PRN PAIN SCALE 1-3 (mild Acetaminophen 650 mg 08/25/24 20:11 Acetaminophen 325 Mg Tablet PO 09/24/24 20:10 Q6H PRN Fever >100.4 Azathioprine 50 mg 08/25/24 21:00 08/27/24 08:53 Azathioprine 50 Mg Tablet PO 09/24/24 20:59 50 mg BID JOSE ALFREDO Administration Folic Acid 1 mg 08/25/24 20:30 08/27/24 08:52 Folic Acid 1 Mg Tablet PO 09/24/24 20:29 1 mg QDAY JOSE ALFREDO Administration Methylprednisolone Sodium Succinate 40 mg 08/25/24 21:00 08/27/24 12:51 Methylprednisolone Sod Succ 40 Mg Vial IVP 09/01/24 20:59 40 mg QID JOSE ALFREDO Administration Ondansetron HCl 4 mg 08/25/24 20:11 Ondansetron Inj 2 Mg/Ml Inj 2 Ml IV 09/24/24 20:10 Q6H PRN NAUSEA OR VOMITING Protocol Pantoprazole Sodium 40 mg 08/26/24 09:00 08/27/24 08:52 Pantoprazole Inj 40 Mg Vial IVP 09/25/24 08:59 40 mg QDAY JOSE ALFREDO Administration Sulfasalazine 1,000 mg 08/25/24 21:00 08/27/24 08:52 Sulfasalazine 500 Mg Tablet PO 09/24/24 20:59 1,000 mg BID JOSE ALFREDO Administration Plan 34-year-old male with PMHx of ulcerative colitis with recurrent exacerbation who was admitted for acute ulcerative colitis flare up. Ulcerative colitis flare, improving Acute proctitis, improving Leukocytosis, resolved Has history of ulcerative colitis, managed by Dr. Monzon. Currently on home medication AZATHIOPRINE/PREDNISONE/SULFASALAZINE which he takes regularly as prescribed, has recurrent exacerbation. Senting with S/S of UC flareups including abdominal pain, nausea, bloody stool, fatigue, and food intolerance. Has diffuse distention, abdominal tenderness and hyperactive bowel sounds on exam. CRP WNL, Hgb 14.6. WBC 14 likely reactive, he is afebrile, low suspicion for active infection. CT abdomen/pelvis showed significant diffuse colitis pattern (UC versus Crohn's), in addition to rectal wall thickening just above proctitis. Patient endorses improvement of diarrhea and abdominal pain. This morning he had a formed bowel movement with no blood or mucus seen in toilet. Stool does not fit criteria for C. difficile. 08/26: infliximab infusion at 5 Mg per KG. Infliximab 450 Mg in normal saline 250 mL infusion IV x 1. Next infusion is planned in 2 weeks. Plan: - Pending stool studies including culture and sensitivity. ? Continue methylprednisolone 40 Mg IV 4 times daily ? Continue home medication azathioprine 50 Mg p.o. twice daily ? Continue home medication folic acid 1 Mg p.o. daily ? Continue home medication sulfasalazine 1000 Mg p.o. twice daily ? Continue ondansetron 4 Mg IV every 6 hourly as needed for nausea/vomiting ? Patient will need repeat dose of infliximab in [address] Monzon's office after the initial dose. ? GI, Dr. Monzon consulted and closely following the case. Appreciate recommendations Health maintenance: Disposition: MedSurg Diet: Low fiber Lines: pIVs GI Prophylaxis: Pantoprazole DVT prophylaxis: None Code status: FULL CODE Plan of care discussed with attending Dr. Lr, PGY-[address] Terell Mansfield MD, PGY 1. Attending Provider Attestation/Addendum I have examined the patient, reviewed labs and imaging findings, discussed the case with the resident(s), and reviewed entered orders. I agree with the plan of care as outlined in this note. Dr. Adeline MD
[2024-08-27 16:00] VITALS: BP 138/96; PULSE 74; RESP 18; TEMP 36.2; O2SAT 97
[2024-08-27 20:00] VITALS: BP 126/89; PULSE 91; RESP 18; TEMP 36.4; O2SAT 97
--- NOTE | 2024-08-27 22:34 | PD.IMPROG ---
Documentation for date of: 08/27/24 Subjective Subjective Interval history: Excellent response to Inflectra Patient need authorization at 2 weeks 4 weeks and every 8 weeks prior to discharge as the outpatient he was not working Case discussed with the internal medicine team Continue IV Solu-Medrol for next 48 hours Exam Vital Signs Temp Pulse Resp BP Pulse Ox O2 Del Method 97.6 F 91 18 126/89 H 97 Room Air 08/27/24 20:00 08/27/24 20:00 08/27/24 20:00 08/27/24 20:00 08/27/24 20:00 08/27/24 20:00 Objective Labs 08/27/24 04:48 08/27/24 04:48 Labs: Laboratory Results - last 24 hr 08/27/24 04:48 WBC 17.1 H D RBC 5.50 Hgb 14.4 Hct 45.0 MCV 82 MCH 26.2 MCHC 32.0 RDW Std Deviation 43.5 Plt Count 308 Neut % (Auto) 85 H Lymph % (Auto) 6 L [place] % (Auto) 9 Eos % (Auto) 0 Baso % (Auto) 0 Neut # (Auto) 14.4 H Lymph # (Auto) 1.0 [place] # (Auto) 1.5 H Eos # (Auto) 0.0 Baso # (Auto) 0.0 Immature Gran # (Auto) 0.13 H Absolute Nucleated RBC 0.00 Immature Gran % 1 H Nucleated RBC % 0 Sodium 139 Potassium 4.8 D Chloride 104 Carbon Dioxide 27.5 Anion Gap 8 BUN 15 Creatinine 0.8 Estim Creat Clear Calc 137.9 eGFR > 60 BUN/Creatinine Ratio 19 Glucose 134 H Calculated Osmolality 280 Calcium 9.5 Corrected Calcium 9.5 Phosphorus 4.6 Magnesium 2.2 Total Bilirubin 0.3 AST 12 ALT 14 Alkaline Phosphatase 69 Total Protein 6.9 Albumin 4.4 Globulin 2.5 Albumin/Globulin Ratio 1.8 Impressions Impression: Pancolitis with failure of conservative management requiring generic Inflectra Prior to discharge patient needs authorization from the insurance carrier and the dates to be given Inflectra At 2 weeks At 4 weeks And then every 8 weeks for 1 year Assessment & Plan A&P Narrative Acute exacerbation of the underlying inflammatory bowel disease not responsive to aggressive outpatient conservative management with abnormal CT scan of the abdomen pelvis Plan Stool for culture and sensitivity C. difficile Gram stain and occult blood Generic Remicade available in the hospital at 5 mg/kg body weight loading dose to be given tomorrow Will follow the patient May need upper endoscopy and lower endoscopy prior to discharge for better assessment of his underlying severity of the disease Thank you very much for the opportunity to participate in care of this patient Time Spent With Patient Time: Total time spent is greater than 50% in coordination of care (as documented) at patient's floor/unit and/or counseling patient:
[2024-08-28] VITALS: BP 121/77; PULSE 115; RESP 18; TEMP 36.2; O2SAT 96
[2024-08-28 04:00] VITALS: BP 127/82; PULSE 94; RESP 18; TEMP 36.3; O2SAT 94
[2024-08-28 05:35] LABS: Alanine Aminotransferase 15 U/L (10-49); Albumin, Serum 4.1 gm/dL (3.5-5.0); Albumin/Globulin Ratio 1.7 (1.2-2.2); Alkaline Phosphatase 61 U/L (46-116); Anion Gap 10 (7-16); Aspartate Amino Transferase < 10 U/L (0-34); BUN/Creatinine Ratio 23 Ratio (12-20); Bilirubin,Total 0.3 mg/dL (0.3-1.2); Blood Urea Nitrogen 18 mg/dL (9-23); Calcium 9.2 mg/dL (8.3-10.6); Calcium (Corrected) 9.2 mg/dL (8.5-10.1); Chloride 105 mMol/L (98-107); Creatinine (Component) 0.8 mg/dL (0.6-1.3); Estimated Creatinine Clearance 135.4 mL/min (>60); Globulin 2.4 gm/dL (2.3-3.5); Glucose 144 mg/dL (74-106); Osmolality,Calculated 286 (275-295); Phosphorous 3.8 mg/dL (2.4-5.1); Sodium 141 mMol/L (136-145); Total Protein 6.5 gm/dL (5.7-8.2); eGFR > 60 See Note
[2024-08-28 06:01] LABS: Basophils % (Auto) 0 % (0-2.5); Eosinophils % (Auto) 0 % (0-10); Hematocrit 44.8 % (41.0-53.0); Hemoglobin 14.3 g/dL (13.5-16.0); Immature Granulocytes % (Auto) 1 % (0-0); Immature Granulocytes Auto 0.18 Thou/mm3 (0.00-0.00); Lymphocytes # (Auto) 0.9 Thou/mm3 (1.0-4.8); Lymphocytes % (Auto) 5 % (10-50); Mean Corpuscular HGB Conc 31.9 g/dl (31.0-37.0); Mean Corpuscular Hemoglobin 26.5 pg (25.0-35.0); Mean Corpuscular Volume 83 fL (80-100); Monocytes # (Auto) 1.5 Thou/mm3 (0.0-0.8); Monocytes % (Auto) 8 % (0-12); Neutrophils # (Auto) 14.9 Thou/mm3 (1.8-7.7); Neutrophils % (Auto) 85 % (37-80); Nucleated Red Blood Cell % 0 /100 WBC (0); Platelet Count 328 Thou/mm3 (140-440); RDW Standard Deviation 44.3 fL (35.1-43.9); White Blood Count 17.5 Thou/mm3 (3.8-10.6)
[2024-08-28 08:00] VITALS: BP 137/90; PULSE 78; RESP 16; TEMP 36.4; O2SAT 95
[2024-08-28] MEDS: sulfaSALAzine 500 MG TABLET 1000 MG PO ×2 (08:11→21:17)
[2024-08-28] MEDS: azaTHIOprine 50 MG TABLET PO ×2 (08:11→21:18)
[2024-08-28] MEDS: FOLIC ACID 1 MG TABLET PO (08:11)
[2024-08-28] MEDS: PANTOPRAZOLE INJ 40 MG VIAL IVP (08:11)
[2024-08-28 12:00] VITALS: BP 121/88; PULSE 78; RESP 18; TEMP 36.1; O2SAT 98
--- NOTE | 2024-08-28 12:16 | ESPR_ITS ---
Documentation for date of: 08/28/24 Subjective Subjective Interval history: 08/28/2024: No acute overnight events to report. This morning, patient seen and assessed in hospital bed; denies any abdominal pain, nausea, vomiting or any other concerning symptoms. Patient is able to ambulate to bathroom and bowel movements have not been abnormal. Patient will get second Infliximab infusion on 08/29; pending insurance approval. Pending discharge within the next 24 hours. Exam Vital Signs Temp Pulse Resp BP Pulse Ox O2 Del Method 97.5 F 78 16 137/90 H 95 Room Air 08/28/24 08:00 08/28/24 08:00 08/28/24 08:00 08/28/24 08:00 08/28/24 08:00 08/28/24 08:00 Narrative Exam Physical Exam General: Awake and in no acute distress. Conversational and non-toxic appearing young male. HEENT: Normocephalic, atraumatic, mucous membranes moist. Heart: Regular rate and rhythm, no murmurs. Lungs: Clear to auscultation with no wheezing or crackles. Abdomen: Soft, nondistended, nontender, positive bowel sounds. ?No guarding or rebound tenderness. Extremities: No edema, clubbing or cyanosis Neurologic: Alert and oriented x3, no gross neurological deficit, and patient able to move all 4 extremities. Objective Labs 08/28/24 04:23 08/28/24 04:23 Labs: Laboratory Results - last 24 hr 08/28/24 04:23 WBC 17.5 H RBC 5.40 Hgb 14.3 Hct 44.8 MCV 83 MCH 26.5 MCHC 31.9 RDW Std Deviation 44.3 H Plt Count 328 Neut % (Auto) 85 H Lymph % (Auto) 5 L [place] % (Auto) 8 Eos % (Auto) 0 Baso % (Auto) 0 Neut # (Auto) 14.9 H Lymph # (Auto) 0.9 L [place] # (Auto) 1.5 H Eos # (Auto) 0.0 Baso # (Auto) 0.0 Immature Gran # (Auto) 0.18 H Absolute Nucleated RBC 0.00 Immature Gran % 1 H Nucleated RBC % 0 Sodium 141 Potassium 4.0 D Chloride 105 Carbon Dioxide 26.0 Anion Gap 10 BUN 18 Creatinine 0.8 Estim Creat Clear Calc 135.4 eGFR > 60 BUN/Creatinine Ratio 23 H Glucose 144 H Calculated Osmolality 286 Calcium 9.2 Corrected Calcium 9.2 Phosphorus 3.8 Magnesium 2.0 Total Bilirubin 0.3 AST < 10 ALT 15 Alkaline Phosphatase 61 Total Protein 6.5 Albumin 4.1 Globulin 2.4 Albumin/Globulin Ratio 1.7 Quality Measures Quality Measures none Assessment & Plan Assessment Current Active Medications: Generic Name Dose Route Start Last Admin Trade Name Freq PRN Reason Stop Dose Admin Acetaminophen 650 mg 08/25/24 20:11 Acetaminophen 325 Mg Tablet PO 09/24/24 20:10 Q6H PRN PAIN SCALE 1-3 (mild Acetaminophen 650 mg 08/25/24 20:11 Acetaminophen 325 Mg Tablet PO 09/24/24 20:10 Q6H PRN Fever >100.4 Azathioprine 50 mg 08/25/24 21:00 08/28/24 08:11 Azathioprine 50 Mg Tablet PO 09/24/24 20:59 50 mg BID JOSE ALFREDO Administration Folic Acid 1 mg 08/25/24 20:30 08/28/24 08:11 Folic Acid 1 Mg Tablet PO 09/24/24 20:29 1 mg QDAY JOSE ALFREDO Administration Methylprednisolone Sodium Succinate 40 mg 08/25/24 21:00 08/28/24 11:24 Methylprednisolone Sod Succ 40 Mg Vial IVP 09/01/24 20:59 40 mg QID JOSE ALFREDO Administration Ondansetron HCl 4 mg 08/25/24 20:11 Ondansetron Inj 2 Mg/Ml Inj 2 Ml IV 09/24/24 20:10 Q6H PRN NAUSEA OR VOMITING Protocol Pantoprazole Sodium 40 mg 08/26/24 09:00 08/28/24 08:11 Pantoprazole Inj 40 Mg Vial IVP 09/25/24 08:59 40 mg QDAY JOSE ALFREDO Administration Sulfasalazine 1,000 mg 08/25/24 21:00 08/28/24 08:11 Sulfasalazine 500 Mg Tablet PO 09/24/24 20:59 1,000 mg BID JOSE ALFREDO Administration Plan 34-year-old male with PMHx of ulcerative colitis with recurrent exacerbation who was admitted for acute ulcerative colitis flare up. #Ulcerative colitis flare, improving #Acute proctitis, improving #Leukocytosis 2/2 steroid use Has history of ulcerative colitis, managed by Dr. Monzon. Currently on home medication AZATHIOPRINE/PREDNISONE/SULFASALAZINE which he takes regularly as prescribed, has recurrent exacerbation. Senting with S/S of UC flareups including abdominal pain, nausea, bloody stool, fatigue, and food intolerance. Has diffuse distention, abdominal tenderness and hyperactive bowel sounds on exam. CRP WNL, Hgb 14.6. WBC 14 likely reactive, he is afebrile, low suspicion for active infection. CT abdomen/pelvis showed significant diffuse colitis pattern (UC versus Crohn's), in addition to rectal wall thickening just above proctitis. Patient endorses improvement of diarrhea and abdominal pain. This morning he had a formed bowel movement with no blood or mucus seen in toilet. Stool does not fit criteria for C. difficile. Stool culture shows; No Enteric pathogens. 4+ Coliforms Present. Shigatox Producing E coli Negative Plan: Next Infliximab dose on 08/29 Continue methylprednisolone 40 Mg IV 4 times daily Continue home medications azathioprine 50 Mg p.o. twice daily, folic acid 1 Mg p.o. daily, sulfasalazine 1000 Mg p.o. twice daily Zofran PRN Patient will need repeat dose of infliximab in [address] Monzon's office after the initial dose GI, Dr. Monzon, consulted and closely following the case. Appreciate recommendations Hospital Management: Bowel: Senna prn Diet: Low fiber Lines: pIVs GI Prophylaxis: Pantoprazole DVT prophylaxis: None Dispo: Pending insurance approval for Infliximab - second dose Tuesday 08/29 Code: Full Patient seen and assessed with attending Dr. Kati Devries, PGY-1 Attending Provider Attestation/Addendum Cassandra Frias DO, attest that I was physically present for the shane portions of the service and evaluated the patient with the resident and I reviewed and discussed the case with the resident and agree with the resident's findings and plans of care as documented above Pt seen and evaluated this AM. Patient states he is doing well and no further bloody bowel movements. He denies any joint pain or abdominal pain. Pending arrangements for outpatient infusion for UC. He is to receive his third dose of inflixamab tomorrow. Patient remains on IV steroids for acute UC flare.
--- NOTE | 2024-08-28 15:24 | ESPR_ITS ---
Documentation for date of: 08/28/24 Subjective Subjective Interval history: Patient evaluated Continue current management IV steroids Case management to authorize therapy With Inflectra at 2 weeks, 4 weeks and then every 8 weeks for the whole year before patient can be discharged Exam Vital Signs Temp Pulse Resp BP Pulse Ox O2 Del Method 97 F 78 18 121/88 H 98 Room Air 08/28/24 12:00 08/28/24 12:00 08/28/24 12:00 08/28/24 12:00 08/28/24 12:00 08/28/24 12:00 Objective Labs 08/28/24 04:23 08/28/24 04:23 Labs: Laboratory Results - last 24 hr 08/28/24 04:23 WBC 17.5 H RBC 5.40 Hgb 14.3 Hct 44.8 MCV 83 MCH 26.5 MCHC 31.9 RDW Std Deviation 44.3 H Plt Count 328 Neut % (Auto) 85 H Lymph % (Auto) 5 L [place] % (Auto) 8 Eos % (Auto) 0 Baso % (Auto) 0 Neut # (Auto) 14.9 H Lymph # (Auto) 0.9 L [place] # (Auto) 1.5 H Eos # (Auto) 0.0 Baso # (Auto) 0.0 Immature Gran # (Auto) 0.18 H Absolute Nucleated RBC 0.00 Immature Gran % 1 H Nucleated RBC % 0 Sodium 141 Potassium 4.0 D Chloride 105 Carbon Dioxide 26.0 Anion Gap 10 BUN 18 Creatinine 0.8 Estim Creat Clear Calc 135.4 eGFR > 60 BUN/Creatinine Ratio 23 H Glucose 144 H Calculated Osmolality 286 Calcium 9.2 Corrected Calcium 9.2 Phosphorus 3.8 Magnesium 2.0 Total Bilirubin 0.3 AST < 10 ALT 15 Alkaline Phosphatase 61 Total Protein 6.5 Albumin 4.1 Globulin 2.4 Albumin/Globulin Ratio 1.7 Impressions Impression: # Pancolitis with acute exacerbation Continue current management Assessment & Plan A&P Narrative Acute exacerbation of the underlying inflammatory bowel disease not responsive to aggressive outpatient conservative management with abnormal CT scan of the abdomen pelvis Plan Stool for culture and sensitivity C. difficile Gram stain and occult blood Generic Remicade available in the hospital at 5 mg/kg body weight loading dose to be given tomorrow Will follow the patient May need upper endoscopy and lower endoscopy prior to discharge for better assessment of his underlying severity of the disease Thank you very much for the opportunity to participate in care of this patient Time Spent With Patient Time: Total time spent is greater than 50% in coordination of care (as documented) at patient's floor/unit and/or counseling patient:
[2024-08-28 16:00] VITALS: BP 125/71; PULSE 70; RESP 16; TEMP 36.3; O2SAT 96
[2024-08-28 20:00] VITALS: BP 139/91; PULSE 67; RESP 18; TEMP 36.4; O2SAT 93
[2024-08-29] VITALS: BP 122/70; PULSE 74; RESP 18; TEMP 36.7; O2SAT 95
[2024-08-29 04:00] VITALS: BP 108/66; PULSE 51; RESP 18; TEMP 36.5; O2SAT 97
[2024-08-29 05:01] LABS: Basophils % (Auto) 0 % (0-2.5); Eosinophils % (Auto) 0 % (0-10); Hemoglobin 14.1 g/dL (13.5-16.0); Immature Granulocytes % (Auto) 1 % (0-0); Immature Granulocytes Auto 0.18 Thou/mm3 (0.00-0.00); Lymphocytes # (Auto) 0.9 Thou/mm3 (1.0-4.8); Lymphocytes % (Auto) 5 % (10-50); Mean Corpuscular Hemoglobin 26.5 pg (25.0-35.0); Mean Corpuscular Volume 83 fL (80-100); Monocytes # (Auto) 1.1 Thou/mm3 (0.0-0.8); Monocytes % (Auto) 7 % (0-12); Neutrophils # (Auto) 14.2 Thou/mm3 (1.8-7.7); Neutrophils % (Auto) 87 % (37-80); Nucleated Red Blood Cell % 0 /100 WBC (0); Platelet Count 299 Thou/mm3 (140-440); RDW Standard Deviation 43.7 fL (35.1-43.9); Red Blood Count 5.32 Miln/mm3 (4.50-5.90); White Blood Count 16.4 Thou/mm3 (3.8-10.6)
[2024-08-29 05:29] LABS: Alanine Aminotransferase 17 U/L (10-49); Albumin/Globulin Ratio 1.8 (1.2-2.2); Alkaline Phosphatase 54 U/L (46-116); Anion Gap 9 (7-16); Aspartate Amino Transferase < 8 U/L (0-34); BUN/Creatinine Ratio 15 Ratio (12-20); Bilirubin,Total 0.3 mg/dL (0.3-1.2); Blood Urea Nitrogen 12 mg/dL (9-23); Calcium 8.9 mg/dL (8.3-10.6); Calcium (Corrected) 8.9 mg/dL (8.5-10.1); Carbon Dioxide 27.9 mMol/L (20.0-31.0); Chloride 104 mMol/L (98-107); Creatinine (Component) 0.8 mg/dL (0.6-1.3); Estimated Creatinine Clearance 135.4 mL/min (>60); Globulin 2.2 gm/dL (2.3-3.5); Glucose 128 mg/dL (74-106); Magnesium 2.1 mg/dL (1.6-2.6); Osmolality,Calculated 282 (275-295); Phosphorous 4.9 mg/dL (2.4-5.1); Potassium 4.2 mMol/L (3.4-5.1); Sodium 141 mMol/L (136-145); Total Protein 6.2 gm/dL (5.7-8.2); eGFR > 60 See Note
[2024-08-29 06:00] VITALS: PULSE 78
--- NOTE | 2024-08-29 06:43 | PC.NURSE ---
Dr. Rodrigues notified of patient having HR in 40s and 50s while resting with eyes closed. Patient HR now in the 70s and 80s while awake. With the bradycardia, patient was asymptomatic. No new orders at this time.
[2024-08-29 07:07] LABS: Giardia Result NOT DETECTED
[2024-08-29 08:00] VITALS: BP 130/78; PULSE 55; RESP 16; TEMP 36.3; O2SAT 93
[2024-08-29] MEDS: sulfaSALAzine 500 MG TABLET 1000 MG PO (08:45)
[2024-08-29] MEDS: FOLIC ACID 1 MG TABLET PO (08:46)
[2024-08-29] MEDS: PANTOPRAZOLE INJ 40 MG VIAL IVP (08:46)
[2024-08-29] MEDS: azaTHIOprine 50 MG TABLET PO (09:55)
[2024-08-29 12:00] VITALS: BP 145/80; PULSE 70; RESP 16; TEMP 36.2; O2SAT 96
--- NOTE | 2024-08-29 14:27 | ESDS_ITS ---
<Statement entered by Enma Figueredo MD - 08/29/24 17:05> Patient was seen and examined by me personally. I have reviewed the below documentation by the team resident and agree with its findings with any exceptions as below. Discharge plan was discussed with the attending, Dr. Lr. Discussed with pharmacist Reyna Reno. Patient has been approved for infliximab infusions with his insurance. Patient can come for flex care in the hospital for the infusions. These dates are already set up. Confirmed with pharmacy and social sciences lecturer. Patient can be discharged home today with steroid taper as instructed by Dr. Monzon. Enma Figueredo, PGY-2 Planned Discharge Date 08/29/24 DS: Providers Provider Date of admission: 08/25/24 20:21 Primary care physician: Physician No Primary/Family Admitting Provider: Malu Aguila MD Attending Provider on Admission: Jeremiah Lr MD Consults: 08/25/24 19:24 Consult to Gastroenterology Stat Comment: Consulting Provider: Noel Monzon Attending Provider on DC: Hunter Devries MD Discharging Provider: Hunter Devries MD DS: Diagnosis Problem List Completed Was Problem List Reviewed/Reconciled?: Yes Hospital Course Hospital Course Hospital course: 34-year-old male with past medical history of ulcerative colitis, followed by Dr. Monzon (gastroenterology) presented to the ED on 08/25 with recurrent abdominal cramps, dark stools and bowel irregularity. In the ED, patient was afebrile, blood pressure 153/92, satting 97 on room air with WBC of 14. CT abdomen pelvis showed significant diffuse colitis pattern and rectal wall thickening. Gastroenterology is admitting the patient for failed oral therapy and requiring IV infliximab initiation. Patient was admitted and monitored in the hospital and progressively made improvement in presenting symptoms. Patient received infliximab infusion therapy without any acute complications. Patient will require Infliximab infusions at 2 weeks, 4 weeks and then every 8 weeks for the whole year. Patient will be discharged with the following strict instructions. Please follow-up with Dr. Monzon at your next scheduled appointment. Follow-up with your PCP within 1-2 weeks after discharge. Please take Prednisone oral tablets as directed for Ulcerative Colitis flare. Continue taking all your home medications as prescribed. If your symptoms worsen or if you develop new chest pain, shortness of breath, severe abdominal pain or bloody vomiting/stools - please come back to the ED immediately. Hospital Diagnosis: #Ulcerative colitis flare, improving #Acute proctitis, improving #Leukocytosis Hunter Devries, PGY-1 Status at Discharge Overall status at discharge: patient is progressing back to baseline Time Spent with Patient Time attestation: Total time spent providing and/or coordinating discharge services: 45 minutes Time spent: Greater than 30 minutes Exam Vital Signs Temp Pulse Resp BP Pulse Ox O2 Del Method 97.1 F 70 16 145/80 H 96 Room Air 08/29/24 12:00 08/29/24 12:08/29/24 12:08/29/24 12:08/29/24 12:08/29/24 12:00 Narrative Exam Physical Exam General: Awake and in no acute distress. Conversational and non-toxic appearing young male. HEENT: Normocephalic, atraumatic, mucous membranes moist. Heart: Regular rate and rhythm, no murmurs. Lungs: Clear to auscultation with no wheezing or crackles. Abdomen: Soft, nondistended, nontender, positive bowel sounds. ?No guarding or rebound tenderness. Extremities: No edema, clubbing or cyanosis Neurologic: Alert and oriented x3, no gross neurological deficit, and patient able to move all 4 extremities. Discharge Plan Plan Patient Disposition: HOME (Self Care) Patient condition on transfer: Stable Care Plan Goals: Please follow-up with Dr. Monzon at your next scheduled appointment. Follow-up with your PCP within 1-2 weeks after discharge. Please take Prednisone oral tablets as directed for Ulcerative Colitis flare. Continue taking all your home medications as prescribed. If your symptoms worsen or if you develop new chest pain, shortness of breath, severe abdominal pain or bloody vomiting/stools - please come back to the ED immediately. Prescriptions/Referrals Prescriptions/Med Rec: New prednisone 5 mg tablet See Taper PO QDAY Qty: 147 0RF Taper: Prednisone Taper 30 mg DAILY for 7 Days and 0 Hour 25 mg DAILY for 7 Days and 0 Hour 20 mg DAILY for 7 Days and 0 Hour 15 mg DAILY for 7 Days and 0 Hour 10 mg DAILY for 7 Days and 0 Hour 5 mg DAILY for 7 Days and 0 Hour Continued azathioprine 50 mg Tablet 50 mg PO BID 30 Days Qty: 60 1RF sulfasalazine 500 mg Tablet 1,000 mg PO BID 30 Days Qty: 120 1RF folic acid 1 mg tablet Discontinued prednisone 5 mg tablet 10 mg PO BID Taper: Prednisone Taper 20 mg DAILY for 2 Days and 0 Hour 10 mg DAILY for 2 Days and 0 Hour 5 mg DAILY for 7 Days and 0 Hour Referrals: No Primary/Family,Physician [Primary Care Provider] - Patient/Caregiver Discharge Instructions Discharge Activity: back to school once clear Education Materials: Colitis Ulcerative Dc, Colitis Ulcerative Lifestyle, Colitis Ulcerative Meds Print Language: Monegasque Stand Alone Forms: [employer] Award Info., Patient Portal Info Letter Discharge Order Discharge Orders: Discharge (Routine); Ordered 08/29/24 Ordered By: Hunter Devries Quality Discharge Quality Measures VTE prophylaxis Attestestation MD Attestation I have examined the patient, reviewed labs and imaging findings, discussed the case with the resident(s), and reviewed entered orders. I agree with the plan of care as outlined in this note. Dr. Adeline MD
--- NOTE | 2024-08-29 15:48 | ESPR_ITS ---
Documentation for date of: 08/29/24 Subjective Subjective Interval history: Case discussed with the internal medicine team Inflectra has been authorized at 2 weeks 4 weeks and 8 weeks for the next 1 year patient can be discharged home I will see him back next week Also discussed how to taper off the prednisone with the internal medicine team Exam Vital Signs Temp Pulse Resp BP Pulse Ox O2 Del Method 97.1 F 70 16 145/80 H 96 Room Air 08/29/24 12:00 08/29/24 12:00 08/29/24 12:00 08/29/24 12:00 08/29/24 12:00 08/29/24 12:00 Objective Labs 08/29/24 04:32 08/29/24 04:32 Labs: Laboratory Results - last 24 hr 08/25/24 08/29/24 09:50 04:32 WBC 16.4 H RBC 5.32 Hgb 14.1 Hct 44.0 MCV 83 MCH 26.5 MCHC 32.0 RDW Std Deviation 43.7 Plt Count 299 Neut % (Auto) 87 H Lymph % (Auto) 5 L [place] % (Auto) 7 Eos % (Auto) 0 Baso % (Auto) 0 Neut # (Auto) 14.2 H Lymph # (Auto) 0.9 L [place] # (Auto) 1.1 H Eos # (Auto) 0.0 Baso # (Auto) 0.0 Immature Gran # (Auto) 0.18 H Absolute Nucleated RBC 0.00 Immature Gran % 1 H Nucleated RBC % 0 Sodium 141 Potassium 4.2 Chloride 104 Carbon Dioxide 27.9 Anion Gap 9 BUN 12 Creatinine 0.8 Estim Creat Clear Calc 135.4 eGFR > 60 BUN/Creatinine Ratio 15 Glucose 128 H Calculated Osmolality 282 Calcium 8.9 Corrected Calcium 8.9 Phosphorus 4.9 Magnesium 2.1 Total Bilirubin 0.3 AST < 8 ALT 17 Alkaline Phosphatase 54 Total Protein 6.2 Albumin 4.0 Globulin 2.2 L Albumin/Globulin Ratio 1.8 Stl Giardia Antigen NOT DETECTED Impressions Impression: Acute resolution of the underlying inflammatory bowel disease patient status post first infusion of Inflectra second infusion in 2 weeks Third infusion in 4 weeks Then every 8 weeks Assessment & Plan A&P Narrative Acute exacerbation of the underlying inflammatory bowel disease not responsive to aggressive outpatient conservative management with abnormal CT scan of the abdomen pelvis Plan Stool for culture and sensitivity C. difficile Gram stain and occult blood Generic Remicade available in the hospital at 5 mg/kg body weight loading dose to be given tomorrow Will follow the patient May need upper endoscopy and lower endoscopy prior to discharge for better assessment of his underlying severity of the disease Thank you very much for the opportunity to participate in care of this patient Time Spent With Patient Time: Total time spent is greater than 50% in coordination of care (as documented) at patient's floor/unit and/or counseling patient:
[2024-08-29 16:00] VITALS: BP 136/92; PULSE 85; RESP 16; TEMP 36.2; O2SAT 97
[2024-09-05 06:55] LABS: ANCA Screen POSITIVE (NEGATIVE); Myeloperoxidase Ab <1.0 AI (<1.0); Proteinase-3 Ab <1.0 AI (<1.0)
== END 2024-08-29 16:48 | disposition home or self-care (01) | DRG 387 ==
LOC: SERX 19:40 → SERHOLD 20:35 → S3SX 23:14
PROVIDERS: Nurse Practitioner Family; Specialist; Admitting Provider Student in an Organized Health Care Education/Training Program; Emergency Provider Emergency Medicine; Visit Provider Student in an Organized Health Care Education/Training Program
DX: K51.911 Ulcerative colitis, unspecified with rectal bleeding (principal); K62.89 Other specified diseases of anus and rectum; T38.0X5A Adverse effect of glucocorticoids and synthetic analogues, initial encounter; R03.0 Elevated blood-pressure reading, without diagnosis of hypertension; D72.825 Bandemia; D72.829 Elevated white blood cell count, unspecified; Z79.899 Other long term (current) drug therapy
CPT/HCPCS: 36415; 74177; 80053; 83735; 84100; 85025; 85652; 86021; 86036; 86140; 86850; 86900; 86901; 87015; 87045; 87046; 87205; 87329; 87493; 87899; 96374; 99285; A4216; A4649; J1745; J2470; J2919; J7050; J7500; Q9967; A9270

== ENCOUNTER 2024-09-09 09:15 | Outpatient (RCR) | payer BC, SELFPAY ==
[2024-09-09 09:29] VITALS: BMI 29.7
[2024-09-09 09:40] VITALS: BP 142/98; PULSE 70; RESP 16; TEMP 36.6; O2SAT 100
[2024-09-09 12:23] VITALS: BP 136/76; PULSE 62; RESP 16; TEMP 36.8; O2SAT 98
== END 2024-09-26 23:59 | disposition home or self-care (01) ==
LOC: SFLEX 09:15
PROVIDERS: PCP Family Medicine; Referring Provider Specialist; Visit Provider Specialist
PROC: (CPT 96365; principal; 2024-09-09 09:00)
DX: K58.0 Irritable bowel syndrome with diarrhea (principal); R10.30 Lower abdominal pain, unspecified; R14.0 Abdominal distension (gaseous)
CPT/HCPCS: 96365; 96366; J1745; J7050

== ENCOUNTER → 2024-10-26 | Outpatient (CLI) | payer BC, SELFPAY ==
[2024-10-26 09:25] VITALS: BP 147/85; PULSE 65; RESP 18; TEMP 36.2; O2SAT 98; BMI 31.1
[2024-10-26 12:30] VITALS: BP 153/82; PULSE 65; RESP 18; TEMP 36.2; O2SAT 99
== END | disposition home or self-care (01) ==
LOC: SFLEX 09:07
PROVIDERS: PCP Family Medicine; Referring Provider Specialist; Visit Provider Specialist
PROC: (CPT 96365; principal; 2024-10-26 09:00)
DX: K58.0 Irritable bowel syndrome with diarrhea (principal); R10.30 Lower abdominal pain, unspecified; R14.0 Abdominal distension (gaseous)
CPT/HCPCS: 96365; 96366; J1745; J7050

== ENCOUNTER → 2024-12-21 | Outpatient (CLI) | payer BC, SELFPAY ==
[2024-12-21 09:12] VITALS: BMI 31.4
[2024-12-21 09:15] VITALS: BP 134/77; PULSE 64; RESP 18; TEMP 36.4; O2SAT 99
[2024-12-21 12:20] VITALS: BP 136/78; PULSE 68; RESP 16; TEMP 36.4; O2SAT 97
== END | disposition home or self-care (01) ==
PROVIDERS: PCP Family Medicine; Referring Provider Specialist; Visit Provider Specialist
PROC: (CPT 96365; principal; 2024-12-21 09:00)
DX: K58.0 Irritable bowel syndrome with diarrhea (principal); R10.30 Lower abdominal pain, unspecified; R14.0 Abdominal distension (gaseous)
CPT/HCPCS: 96365; 96366; A4216; J7050; Q5103

== ENCOUNTER → 2025-02-15 | Outpatient (CLI) | payer BC, SELFPAY ==
[2025-02-15 09:30] VITALS: BP 149/71; PULSE 63; RESP 14; TEMP 36.3; O2SAT 99; BMI 30.4
[2025-02-15] MEDS: [UNRECOGNIZED DRUG - OTHER] IV (10:42)
[2025-02-15] MEDS: STERILE WATER IV (10:42)
[2025-02-15] MEDS: FILTER MICRON CONICAL IV (10:42)
[2025-02-15] MEDS: INFLIXIMAB IV (10:42)
[2025-02-15 13:05] VITALS: BP 146/78; PULSE 68; RESP 14; TEMP 36.6; O2SAT 100
== END | disposition home or self-care (01) ==
PROVIDERS: PCP Family Medicine; Referring Provider Specialist; Visit Provider Specialist
DX: K58.8 Other irritable bowel syndrome (principal)
CPT/HCPCS: 96365; 96366; A4216; J1745; J7050

== ENCOUNTER → 2025-03-06 | Outpatient (CLI) | payer BC, SELFPAY ==
[2025-03-06 12:37] LABS: Basophils # (Auto) 0.0 Thou/mm3 (0.0-0.2); Basophils % (Auto) 0 % (0-2.5); Eosinophils # (Auto) 0.1 Thou/mm3 (0.0-0.5); Eosinophils % (Auto) 1 % (0-10); Hematocrit 42.1 % (41.0-53.0); Hemoglobin 13.4 g/dL (13.5-16.0); Immature Granulocytes Auto 0.03 Thou/mm3 (0.00-0.00); Lymphocytes # (Auto) 2.2 Thou/mm3 (1.0-4.8); Lymphocytes % (Auto) 31 % (10-50); Mean Corpuscular HGB Conc 31.8 g/dl (31.0-37.0); Mean Corpuscular Hemoglobin 26.0 pg (25.0-35.0); Mean Corpuscular Volume 82 fL (80-100); Monocytes # (Auto) 0.8 Thou/mm3 (0.0-0.8); Monocytes % (Auto) 11 % (0-12); Neutrophils # (Auto) 3.9 Thou/mm3 (1.8-7.7); Neutrophils % (Auto) 55 % (37-80); Nucleated Red Blood Cell # 0.00 Thou/mm3 (0.00-0.00); Nucleated Red Blood Cell % 0 /100 WBC (0); Platelet Count 273 Thou/mm3 (140-440); RDW Standard Deviation 43.3 fL (35.1-43.9); Red Blood Count 5.16 Miln/mm3 (4.50-5.90); White Blood Count 7.0 Thou/mm3 (3.8-10.6)
[2025-03-06 13:13] LABS: Alanine Aminotransferase 23 U/L (10-49); Albumin, Serum 4.8 gm/dL (3.5-5.0); Albumin/Globulin Ratio 2.2 (1.2-2.2); Alkaline Phosphatase 56 U/L (46-116); Anion Gap 13 (7-16); Aspartate Amino Transferase 25 U/L (0-34); BUN/Creatinine Ratio 16 Ratio (12-20); Bilirubin,Total 0.5 mg/dL (0.3-1.2); Blood Urea Nitrogen 13 mg/dL (9-23); C-Reactive Protein < 0.5 mg/dL (0.0-0.9); Calcium 9.5 mg/dL (8.3-10.6); Calcium (Corrected) 9.5 mg/dL (8.5-10.1); Carbon Dioxide 27.0 mMol/L (20.0-31.0); Chloride 103 mMol/L (98-107); Creatinine (Component) 0.8 mg/dL (0.6-1.3); Globulin 2.2 gm/dL (2.3-3.5); Glucose 89 mg/dL (74-106); Osmolality,Calculated 284 (275-295); Potassium 4.0 mMol/L (3.4-5.1); Sodium 143 mMol/L (136-145); Total Protein 7.0 gm/dL (5.7-8.2); eGFR > 60 See Note
== END | disposition home or self-care (01) ==
PROVIDERS: PCP Family Medicine; Referring Provider Specialist; Visit Provider Specialist
DX: K51.911 Ulcerative colitis, unspecified with rectal bleeding (principal); R10.10 Upper abdominal pain, unspecified
CPT/HCPCS: 36415; 80053; 85025; 86140

== ENCOUNTER → 2025-05-24 | Outpatient (CLI) | payer BC, SELFPAY ==
[2025-05-24 09:27] VITALS: BP 152/88; PULSE 71; RESP 18; TEMP 36.6; O2SAT 98
[2025-05-24] MEDS: INFLIXIMAB IV (09:36)
[2025-05-24] MEDS: FILTER MICRON CONICAL IV (09:36)
[2025-05-24] MEDS: [UNRECOGNIZED DRUG - OTHER] IV (09:36)
[2025-05-24] MEDS: STERILE WATER IV (09:36)
[2025-05-24 11:15] VITALS: BP 141/92; PULSE 66; RESP 18; TEMP 36.4; O2SAT 98
== END | disposition home or self-care (01) ==
PROVIDERS: PCP Family Medicine; Referring Provider Specialist; Visit Provider Specialist
PROC: (CPT 96365; principal; 2025-05-24 10:00)
DX: K58.0 Irritable bowel syndrome with diarrhea (principal); R10.30 Lower abdominal pain, unspecified; R14.0 Abdominal distension (gaseous)
CPT/HCPCS: 96365; 96366; A4216; J1745; J7050

== ENCOUNTER → 2025-06-07 | Outpatient (CLI) | payer BC, SELFPAY ==
[2025-06-07 12:02] LABS: Basophils # (Auto) 0.0 Thou/mm3 (0.0-0.2); Basophils % (Auto) 1 % (0-2.5); Eosinophils # (Auto) 0.1 Thou/mm3 (0.0-0.5); Eosinophils % (Auto) 2 % (0-10); Hematocrit 43.9 % (41.0-53.0); Hemoglobin 14.0 g/dL (13.5-16.0); Immature Granulocytes Auto 0.00 Thou/mm3 (0.00-0.00); Lymphocytes # (Auto) 1.9 Thou/mm3 (1.0-4.8); Lymphocytes % (Auto) 46 % (10-50); Mean Corpuscular HGB Conc 31.9 g/dl (31.0-37.0); Mean Corpuscular Hemoglobin 26.2 pg (25.0-35.0); Mean Corpuscular Volume 82 fL (80-100); Monocytes # (Auto) 0.5 Thou/mm3 (0.0-0.8); Monocytes % (Auto) 13 % (0-12); Neutrophils # (Auto) 1.6 Thou/mm3 (1.8-7.7); Neutrophils % (Auto) 39 % (37-80); Nucleated Red Blood Cell # 0.00 Thou/mm3 (0.00-0.00); Nucleated Red Blood Cell % 0 /100 WBC (0); Platelet Count 279 Thou/mm3 (140-440); RDW Standard Deviation 41.5 fL (35.1-43.9); Red Blood Count 5.35 Miln/mm3 (4.50-5.90); White Blood Count 4.1 Thou/mm3 (3.8-10.6)
[2025-06-07 12:33] LABS: Alanine Aminotransferase 57 U/L (10-49); Albumin, Serum 4.7 gm/dL (3.5-5.0); Albumin/Globulin Ratio 1.7 (1.2-2.2); Alkaline Phosphatase 62 U/L (46-116); Anion Gap 9 (7-16); Aspartate Amino Transferase 55 U/L (0-34); BUN/Creatinine Ratio 11 Ratio (12-20); Bilirubin,Total 0.7 mg/dL (0.3-1.2); Blood Urea Nitrogen 9 mg/dL (9-23); C-Reactive Protein < 0.5 mg/dL (0.0-0.9); Calcium 9.4 mg/dL (8.3-10.6); Calcium (Corrected) 9.4 mg/dL (8.5-10.1); Carbon Dioxide 27.9 mMol/L (20.0-31.0); Chloride 104 mMol/L (98-107); Creatinine (Component) 0.8 mg/dL (0.6-1.3); Globulin 2.7 gm/dL (2.3-3.5); Glucose 90 mg/dL (74-106); Osmolality,Calculated 279 (275-295); Potassium 4.1 mMol/L (3.4-5.1); Sodium 141 mMol/L (136-145); Total Protein 7.4 gm/dL (5.7-8.2); eGFR > 60 See Note
== END | disposition home or self-care (01) ==
LOC: COPL 11:33
PROVIDERS: PCP Family Medicine; Referring Provider Specialist; Visit Provider Specialist
DX: E78.9 Disorder of lipoprotein metabolism, unspecified (principal)
CPT/HCPCS: 36415; 80053; 85025; 86140